=== PATIENT | male | born 1995 ===

== ENCOUNTER 2021-01-12 11:14 | Emergency (ER) | payer BC ==
[2021-01-12 11:47] LABS: #Eosinphils 0.3 thou/uL (0.0-0.7); #Lymphocytes 2.1 thou/uL (1.20-3.40); #Monocytes 0.6 thou/uL (0.11-0.59); #Neutrophils 4.8 thou/uL (1.40-6.50); %Basophils 0.5 % (0.0-1.0); %Eosinophils 3.3 % (0.0-10.0); %Lymphocytes 27.1 % (21.0-51.0); %Monocytes 8.1 % (0.0-10.0); %Neutrophils 61.1 % (42.0-75.0); Hemoglobin 15.2 g/dL (14.0-18.0); Mean Corpuscular HGB CONC 35.5 g/dL (32.0-36.0); Mean Corpuscular Hemoglobin 32.1 pg (27.0-31.0); Mean Corpuscular Volume 90.7 fL (78.0-98.0); Mean Platelet Volume 8.5 fL (7.4-10.4); Platelet Count 160 thou/uL (130-400); RBC Distribution Width 11.5 % (11.5-14.5); Red Blood Cell (RBC) Count 4.74 mill/uL (4.70-6.10); White Blood Cell (WBC) Count 7.9 thou/uL (4.8-10.8)
[2021-01-12 12:08] LABS: ALT (SGPT) 8 U/L (8-55); AST (SGOT) 20 U/L (5-34); Albumin 4.6 g/dL (3.5-5.0); Alkaline Phosphatase 48 U/L (40-110); Anion Gap 9 mmol/L (10-20); BUN (Urea Nitrogen) 14 mg/dL (8.9-20.6); Calc. Creatinine Clearance 0 mL/min (70-130); Calcium 9.6 mg/dL (7.8-10.44); Carbon Dioxide 30 mmol/L (22-29); Chloride 105 mmol/L (98-107); Globulin 3.3 g/dL (2.4-3.5); Glucose 75 mg/dL (70-105); Potassium 4.3 mmol/L (3.5-5.1); Protein, Total 7.9 g/dL (6.0-8.3); Sodium 140 mmol/L (136-145)
[2021-01-12 12:36] LABS: Bacteria/HPF None Seen HPF (None Seen); Bilirubin Negative (Negative); Blood, Urine 3+ (Negative); Calcium Oxalate Crystals 3+ HPF (None Seen); Clarity Clear (Clear); Glucose, Urine (Dipstick) Normal (Negative); Ketone, Urine Negative (Negative); Leukocyte 75 Leu/uL (Negative); Nitrite Negative (Negative); Protein, Urine (Dipstick) 20 mg/dL (Neg-Trace); RBC/HPF Greater than 50 HPF (0-3); Specific Gravity, Urine 1.027 (1.002-1.036); Squamous Epithelial 0-3 HPF (0-3); WBC/HPF 21-50 HPF (0-3); pH, Urine 5.5 (5.0-9.0)
== END 2021-01-12 15:18 | disposition home or self-care (01) ==
LOC: ERS 11:14
DX: N13.2 Hydronephrosis with renal and ureteral calculous obstruction (principal); F17.210 Nicotine dependence, cigarettes, uncomplicated
CPT/HCPCS: 36415; 74176; 80053; 81003; 81015; 85025; 87086

== ENCOUNTER 2021-05-27 07:43 | Emergency (ER) | payer BC ==
[2021-05-27] MEDS ORDERED: Ketorolac Tromethamine 30 MG/ML VIAL ONE (08:07)
[2021-05-27] MEDS ORDERED: Ondansetron PF 4 MG/2 ML Vial ONE (08:30)
[2021-05-27 08:58] LABS: Anion Gap 15 mmol/L (10-20); BUN (Urea Nitrogen) 12 mg/dL (8.9-20.6); Calc. Creatinine Clearance 0 mL/min (70-130); Calcium 9.1 mg/dL (7.8-10.44); Carbon Dioxide 18 mmol/L (22-29); Chloride 107 mmol/L (98-107); Glucose 101 mg/dL (70-105); Potassium 4.3 mmol/L (3.5-5.1); Sodium 136 mmol/L (136-145)
[2021-05-27 09:08] LABS: Hemoglobin 16.1 g/dL (14.0-18.0); Mean Corpuscular HGB CONC 34.4 g/dL (32.0-36.0); Mean Corpuscular Hemoglobin 31.9 pg (27.0-31.0); Mean Corpuscular Volume 92.6 fL (78.0-98.0); Mean Platelet Volume 8.1 fL (7.4-10.4); Platelet Count 136 thou/uL (130-400); RBC Distribution Width 11.6 % (11.5-14.5); Red Blood Cell (RBC) Count 5.05 mill/uL (4.70-6.10)
[2021-05-27 09:46] LABS: #Basophils 0.1 thou/uL (0.0-0.2); #Eosinphils 0.4 thou/uL (0.0-0.7); #Lymphocytes 2.6 thou/uL (1.20-3.40); #Monocytes 0.5 thou/uL (0.11-0.59); #Neutrophils 3.4 thou/uL (1.40-6.50); %Basophils 0.9 % (0.0-1.0); %Eosinophils 5.5 % (0.0-10.0); %Lymphocytes 37.7 % (21.0-51.0); %Monocytes 7.3 % (0.0-10.0); %Neutrophils 48.6 % (42.0-75.0); Eosinophils 2 % (0-10); Lymphocytes 31 % (21-51); MDiff Complete? YES; Monocytes 5 % (0-10); Neutrophil 62 % (42-75); RBC Morphology Normal
[2021-05-27 10:25] LABS: Bilirubin Negative (Negative); Blood, Urine Negative (Negative); Clarity Extra Turbid (Clear); Glucose, Urine (Dipstick) Normal (Negative); Ketone, Urine Negative (Negative); Leukocyte Negative Leu/uL (Negative); Nitrite Negative (Negative); Protein, Urine (Dipstick) Negative (Neg-Trace); Specific Gravity, Urine 1.017 (1.002-1.036); Urobilinogen Normal mg/dL (Less than 2)
== END 2021-05-27 11:38 | disposition home or self-care (01) ==
LOC: ERS 07:43
DX: R10.9 Unspecified abdominal pain (principal); F17.210 Nicotine dependence, cigarettes, uncomplicated
CPT/HCPCS: 36415; 74176; 80048; 81003; 85025; 87086; 96374; 96375; J1885; J2405